=== PATIENT | female | born 1965 | race Caucasian/White ===

== ENCOUNTER 2019-03-28 01:12 | Emergency (ER) | payer OTHER ==
[2019-03-28 01:46] VITALS: TEMP 97.9; BMI 29.1
[2019-03-28] MEDS ORDERED: ALBUTEROL SO4 2.5/IPRATROPIUM 0.5 INH SOL 3 ML VIAL.NEB. NEB ONE (02:44)
--- NOTE | 2019-03-28 02:49 | PDOC ---
History of Present Illness - General Chief Complaint: Blood Pressure Problem Stated Complaint: HIGH BP Time Seen by Provider: 03/28/19 02:19 - History of Present Illness Initial Comments: 03/28/19 03:29 53f with htn presents to the ED with concerns that her pressure at home was high in the 160's. The htn lead her to have shortness of breath and tingling down the arm. Same constellation of vague symptoms that she usually feels when he bp is high. Usually, she uses her albuterol inhaler which always resolves her shortness of breath. However, today, she admits that she completely forgot about it. Pressure in the ED in the 140's. Past History - Past Medical History Allergies/Adverse Reactions: Allergies Allergy/AdvReac Type Severity Reaction Status Date / Time No Known Allergies Allergy Verified 03/28/19 01:54 Home Medications: Ambulatory Orders metFORMIN HCL [Glucophage] 500 mg PO BID 04/28/14 Albuterol Sulfate Inhaler - [Ventolin HFA Inhaler -] 1 - 2 inh PO PRN PRN Glipizide 10 mg PO DAILY 11/20/15 Simvastatin [Zocor -] 5 mg PO HS 11/20/15 Anemia: No Asthma: Yes Cancer: No Cardiac Disorders: No CVA: No COPD: No CHF: No DVT: Yes Dementia: No Diabetes: Yes GI Disorders: No Disorders: No HTN: Yes Hypercholesterolemia: Yes Liver Disease: No Seizures: No Thyroid Disease: No - Surgical History Cardiac Surgery: Yes (CARDIAC CATH NEG 05/02) - Immunization History Td Vaccination: Yes Immunization Up to Date: Yes - Suicide/Smoking/Psychosocial Hx Smoking Status: No Smoking History: Never smoked Years of Tobacco Use: 0 Have you smoked in the past 12 months: No Number of Cigarettes Smoked Daily: 0 Cigars Per Day: 0 Information on smoking cessation initiated: No Hx Alcohol Use: No Drug/Substance Use Hx: No Substance Use Type: None Review of Systems - Review of Systems Able to Perform ROS?: Yes Is the patient limited Faroese proficient: No Constitutional: No: Symptoms Reported HEENTM: No: Symptoms Reported Respiratory: Yes: Shortness of Breath Cardiac (ROS): No: Symptoms Reported ABD/GI: No: Symptoms Reported Integumentary: No: Symptoms Reported Neurological: No: Symptoms reported All Other Systems: Reviewed and Negative *Physical Exam - Vital Signs Last Vital Signs Temp Pulse Resp BP Pulse Ox 97.9 F 92 H 20 153/91 98 03/28/19 01:45 03/28/19 01:45 03/28/19 01:45 03/28/19 01:45 03/28/19 01:45 - Physical Exam General Appearance: Yes: Obese. No: Apparent Distress HEENT: positive: EOMI, HEATHER, Normal ENT Inspection Respiratory/Chest: positive: Lungs Clear, Normal Breath Sounds. negative: Chest Tender, Respiratory Distress Cardiovascular: positive: Regular Rhythm, Regular Rate, S1, S2 Gastrointestinal/Abdominal: positive: Normal Bowel Sounds, Flat, Soft. negative : Tender Musculoskeletal: positive: Normal Inspection. negative: CVA Tenderness Extremity: positive: Normal Capillary Refill, Normal Inspection, Normal Range of Motion Integumentary: positive: Normal Color, Dry, Warm Neurologic: positive: Fully Oriented, Alert, Normal Mood/Affect, Normal Response , Motor Strength 5/5 Medical Decision Making - Medical Decision Making 03/28/19 03:45 Will rule out possible hypertensive emergency although highly unlikely due patient not being significantly hypertensive. \ Although most likely the patient was sob because of her asthma/allergies which increase slightly her blood pressure. Will give patient duoneb, blood work ekg and reassess. EKG: normal sinus rhythm. received duoneb. Patient eloped before bloodwork could be drawn. *DC/Admit/Observation/Transfer Diagnosis at time of Disposition: Hypertension - Discharge Dispostion Disposition: ELOPED - Referrals Referrals: Pilar Larios MD [Primary Care Provider] - - Patient Instructions - Post Discharge Activity
--- NOTE | 2019-03-28 03:28 | PDOC ---
Attending Attestation - Resident Resident Name: Zachery Crow - ED Attending Attestation I have performed the following: I have examined & evaluated the patient, The case was reviewed & discussed with the resident, I agree w/resident's findings & plan - HPI HPI: 03/28/19 03:27 Pt's BP was high at home. She is anxious and wants it checked. - Physicial Exam PE: 03/28/19 03:27 Agree with resident exam. - Medical Decision Making 03/28/19 03:27 Pt was reassured, as her BP came down and her EKG is NSR; she eloped before we could draw blood
[2019-03-28 04:45] VITALS: BP 140/74; PULSE 86
--- NOTE | 2019-03-28 14:19 | EKG ---
Test Reason : Blood Pressure : / mmHG Vent. Rate : 078 BPM Atrial Rate : 078 BPM P-R Int : 150 ms QRS Dur : 084 ms QT Int : 380 ms P-R-T Axes : 064 -29 063 degrees QTc Int : 433 ms NORMAL SINUS RHYTHM LOW VOLTAGE QRS BORDERLINE ECG WHEN COMPARED WITH ECG OF 28-APR-2014 06:07, NO SIGNIFICANT CHANGE WAS FOUND Confirmed by MD Gaffney Daniel ([id number]) on 03/28/2019 2:18:44 PM Referred By: Confirmed By:Dinesh Gaffney MD
== END 2019-03-28 04:05 | disposition left against medical advice (07) ==
LOC: JER 01:12
PROC: 3E0F7GC Introduction of Other Therapeutic Substance into Respiratory Tract, Via Natural or Artificial Opening (ICD-10-PCS; principal; 2019-03-28)
DX: I10 Essential (primary) hypertension (principal); E11.9 Type 2 diabetes mellitus without complications; E78.00 Pure hypercholesterolemia, unspecified; Z79.84 Long term (current) use of oral hypoglycemic drugs; J45.909 Unspecified asthma, uncomplicated
CPT/HCPCS: 93005; 93010; 99282-25

== ENCOUNTER 2019-09-25 03:15 | Emergency (ER) | payer OTHER ==
[2019-09-25 03:54] VITALS: PULSE 98; TEMP 98.8; BMI 35.2
--- NOTE | 2019-09-25 03:54 | PDOC ---
History of Present Illness - General Chief Complaint: Blood Pressure Problem Stated Complaint: HIGH BLOOD PRESSURE Time Seen by Provider: 09/25/19 03:53 - History of Present Illness Initial Comments: HPI: 53yo F with PMH of HTN, HLD, DM presenting with with high blood pressure reading. Patient states she was feeling dizzy around 3am and had heart palpitations. Patient checked her blood pressure because she was feeling poorly and noted it to be elevated, 178/112. She ate garlic as she believes this helps with high blood pressure and took her home dose of losartan. Patient checked her blood pressure once again and since it was still high, she decided to come to the ER. Denies headache, weakness, vision changes, chest pain, or shortness of breath. Patient takes Losartan 50mg and reports medication compliance. Patient feels she is at her baseline currently. Denies dizziness or heart palpitations right now. No fevers or chills. ROS: Constitutional: no fever, no chills HEENT: no throat pain, no dysphagia Cardiovascular: no chest pain, +palpitations Respiratory: no cough, no shortness of breath Gastrointestinal: no abdominal pain, no nausea Genitourinary: no dysuria, no hematuria Musculoskeletal: no myalgia, no arthralgia Skin: no rash, no itching Neurologic: no headache, no weakness Psych: no agitation, no anxiety PE: General: Awake, alert, and fully oriented, in no acute distress Head: No signs of trauma Eyes: EOMI, sclera anicteric ENT: Moist mucus membranes Neck: Normal ROM, supple Lungs: Lungs clear, Normal breath sounds Cardio: Regular rhythm, S1 and S2 present Abdomen: Soft, nontender. No guarding, no rebound, no masses Extremities: Normal range of motion, Distal pulses present SKIN: Warm, Dry, normal turgor Neurologic: Cranial nerves II through XII intact. Normal speech, sensation, strength, coordination, and gait. ED Course/MDM: DDX including but not limited to isolated hypertensive reading, hypertensive urgency vs emergency, ACS, syncope, CVA Patient had CBC, CMP for regular followup performed four days ago which were normal We will obtain Tpn EKG CXR 09/25/19 03:54 EKG: rate 95, QTc 439, sinus CMP Creatine Kinase 56 U/L (26-192) 09/25/19 05:02 Troponin I < 0.02 ng/ml (0.00-0.05) 09/25/19 05:02 Tpn undetectable Patient without signs of end-organ damage To follow up with primary care physician Return precautions Stable to discharge 09/25/19 08:40 CXR as reported by radiology:" EXAM#: TYPE/EXAM: RESULT : [id number] RAD/CHEST PA LAT Chest: Hypertension. Shortness of breath 2 views of the chest reveal clear well aerated lungs, normal mediastinum and sharp angles. The soft tissues are intact. There are some degenerative changes. Since 11/09/2015, there is no change of an adverse nature. Impression: No acute chest pathology. Reported By: Mark Delgadillo MD 09/25/19 0756 " Past History - Past Medical History Allergies/Adverse Reactions: Allergies Allergy/AdvReac Type Severity Reaction Status Date / Time No Known Allergies Allergy Verified 03/28/19 01:54 Home Medications: Ambulatory Orders metFORMIN HCL [Glucophage] 500 mg PO BID 04/28/14 Albuterol Sulfate Inhaler - [Ventolin HFA Inhaler -] 1 - 2 inh PO PRN PRN Glipizide 10 mg PO DAILY 11/20/15 Simvastatin [Zocor -] 5 mg PO HS 11/20/15 Anemia: No Asthma: Yes Cancer: No Cardiac Disorders: No CVA: No COPD: No CHF: No DVT: Yes Dementia: No Diabetes: Yes GI Disorders: No Disorders: No HTN: Yes Hypercholesterolemia: Yes Liver Disease: No Seizures: No Thyroid Disease: No - Surgical History Cardiac Surgery: Yes (CARDIAC CATH NEG 05/02) - Immunization History Td Vaccination: Yes Immunization Up to Date: Yes - Psycho Social/Smoking Cessation Hx Smoking Status: No Smoking History: Never smoked Years of Tobacco Use: 0 Have you smoked in the past 12 months: No Number of Cigarettes Smoked Daily: 0 Cigars Per Day: 0 Information on smoking cessation initiated: No Hx Alcohol Use: No Drug/Substance Use Hx: No Substance Use Type: None *Physical Exam - Vital Signs Last Vital Signs Temp Pulse Resp BP Pulse Ox 98.8 F 98 H 20 154/101 H 99 09/25/19 03:51 09/25/19 03:51 09/25/19 03:51 09/25/19 03:51 09/25/19 03:51 Discharge - Discharge Information Problems reviewed: Yes Clinical Impression/Diagnosis: Hypertension Qualifiers: Hypertension type: unspecified Qualified Code(s): I10 - Essential (primary) hypertension Condition: Stable Disposition: HOME - Follow up/Referral Referrals: Pilar Larios MD [Primary Care Provider] - - Patient Discharge Instructions Patient Printed Discharge Instructions: Eating a Diet Rich in Fruits and Vegetables, How to Monitor Your Blood Pressure at Home Additional Instructions: You came to the emergency department for a high blood pressure reading. Labs, Xray, and EKG did not indicate acute pathology. Continue taking home medications as prescribed. Follow-up with a primary care provider this week to discuss this ED visit and to further evaluate your symptoms. Your workup is not complete until you do so. Call and make an appointment. Immediate medical attention is required if you experience: severe headache, have a seizure, have focal numbness or weakness, chest pain, shortness of breath , or any new or concerning symptoms. If you think you are having an emergency, call for emergency medical services or present to the emergency department right away. - Post Discharge Activity
--- NOTE | 2019-09-25 04:21 | PDOC ---
Attending Attestation - Resident Resident Name: Vicky Pereira - ED Attending Attestation I have performed the following: I have examined & evaluated the patient, The case was reviewed & discussed with the resident, I agree w/resident's findings & plan - HPI HPI: 09/25/19 04:43 Pt comes with HTN; she states that she wakes in the middle of the night sob and hands feel numb and she has blue palms. She has no fever and no outlet obstruction She has no SOB here and she tells us that she is supposed to take losartan 100mg , but that she is only taking 50mg - Physicial Exam PE: 09/25/19 04:47 Pt is obese heart and lungs normal HEENT normal abd soft NT ND no flank pain No pitting edema Pt has no raynauds and no scleroderma She has no rashes She has normal neuro exam - Medical Decision Making 09/25/19 05:43 EKG NST CXR PA/LAT normal vitals improving Card Enz/Trop normal; she is stable for discharge home 09/25/19 05:52 Pt counseled on veggie/fruit diet and stress mitigation techniques. Heart Score/ECG Review - ECG Intrepretation Rhythm: Regular Rhythm - [place]: Normal - P and [place] Delta Wave(s) Present: No WPW: No - QRS Poor R Wave Progression: No Q Wave Present: No - ST and T Early Repolarization: No Non Specific ST-T Wave changes: No - ECG Impressions Normal ECG: Yes Non-specific ST Elevation: No Ischemic Changes: No Bradycardia: No Torsades alma Pointes: No WPW: No
[2019-09-25] MEDS ORDERED: LORazepam 2 MG TABLET PO ONE (04:41)
[2019-09-25] MEDS ORDERED: LORazepam 0.5 MG TABLET ONE (04:48)
[2019-09-25 05:21] VITALS: BP 142/103
--- NOTE | 2019-09-26 14:16 | EKG ---
Test Reason : Blood Pressure : / mmHG Vent. Rate : 095 BPM Atrial Rate : 095 BPM P-R Int : 158 ms QRS Dur : 084 ms QT Int : 350 ms P-R-T Axes : 050 -37 050 degrees QTc Int : 439 ms NORMAL SINUS RHYTHM LEFT AXIS DEVIATION LOW VOLTAGE QRS CANNOT RULE OUT ANTERIOR INFARCT , AGE UNDETERMINED ABNORMAL ECG Confirmed by MD CRISTIANE, BORIS ([id number]) on 09/26/2019 2:16:18 PM Referred By: Confirmed By:BORIS SAUER MD
== END 2019-09-25 05:55 | disposition home or self-care (01) ==
LOC: JER 03:15
DX: I10 Essential (primary) hypertension (principal); E11.9 Type 2 diabetes mellitus without complications; Z79.84 Long term (current) use of oral hypoglycemic drugs; E78.00 Pure hypercholesterolemia, unspecified; Z86.718 Personal history of other venous thrombosis and embolism; Z98.61 Coronary angioplasty status
CPT/HCPCS: 36415; 71046-TC-FY; 82550; 84484; 93005; 93010; 99282-25

== ENCOUNTER 2019-10-07 03:23 | Emergency (ER) | payer OTHER ==
[2019-10-07 04:08] VITALS: PULSE 69; TEMP 98.3; BMI 26.6
[2019-10-07 04:53] VITALS: BP 137/74
--- NOTE | 2019-10-07 05:01 | PDOC ---
Attending Attestation - Resident Resident Name: NatanFredo - ED Attending Attestation I have performed the following: I have examined & evaluated the patient, The case was reviewed & discussed with the resident, I agree w/resident's findings & plan - HPI HPI: 10/07/19 05:23 see resident hpi - Physicial Exam PE: 10/07/19 05:24 see resident exam - Medical Decision Making 10/07/19 05:24 53-year-old female here for blood pressure check, currently asymptomatic We will DC to follow-up with primary care Patient is normotensive without intervention at this time
--- NOTE | 2019-10-07 05:07 | PDOC ---
History of Present Illness - General Chief Complaint: Blood Pressure Problem Stated Complaint: BLOOD PRESSURE PROBLEM Time Seen by Provider: 10/07/19 04:50 History Source: Patient Exam Limitations: No Limitations - History of Present Illness Initial Comments: 10/07/19 04:51 PCP: Dr. Pilar Larios HPI: 53yo F PMH of HTN, HLD, DM presenting with with high blood pressure reading at 3AM. Patient states she felt cold around 3am and had heart palpitations. Patient checked her blood pressure and noted it to be elevated, tp 180/120. She took her home dose of losartan and came to the ED. Arrived with a SBP 124. Denies headache, weakness, vision changes, chest pain, or shortness of breath. Patient takes Losartan 50mg BID and reports medication compliance. She has been working with her PCP to adjust her dose and has an appointment for 10/12/19. Denies dizziness or heart palpitations right now. No fevers, chills, or recent infections. All: NKDA Past History - Travel Close contact w/someone who was outside of country & ill: No - Past Medical History Allergies/Adverse Reactions: Allergies Allergy/AdvReac Type Severity Reaction Status Date / Time No Known Allergies Allergy Verified 03/28/19 01:54 Home Medications: Ambulatory Orders metFORMIN HCL [Glucophage] 500 mg PO BID 04/28/14 Albuterol Sulfate Inhaler - [Ventolin HFA Inhaler -] 1 - 2 inh PO PRN PRN Glipizide 10 mg PO DAILY 11/20/15 Simvastatin [Zocor -] 5 mg PO HS 11/20/15 Anemia: No Asthma: Yes Cancer: No Cardiac Disorders: No CVA: No COPD: No CHF: No DVT: Yes Dementia: No Diabetes: Yes GI Disorders: No Disorders: No HTN: Yes Hypercholesterolemia: Yes Liver Disease: No Seizures: No Thyroid Disease: No - Surgical History Cardiac Surgery: Yes (CARDIAC CATH NEG 05/02) - Immunization History Td Vaccination: Yes Immunization Up to Date: Yes - Psycho Social/Smoking Cessation Hx Smoking Status: No Smoking History: Never smoked Years of Tobacco Use: 0 Have you smoked in the past 12 months: No Number of Cigarettes Smoked Daily: 0 Cigars Per Day: 0 Hx Alcohol Use: No Drug/Substance Use Hx: No Substance Use Type: None Review of Systems - Review of Systems Able to Perform ROS?: Yes Is the patient limited French proficient: Yes Constitutional: No: Chills, Fever HEENTM: No: Nose Congestion, Throat Pain Respiratory: No: Cough, Shortness of Breath Cardiac (ROS): No: Chest Pain, Irregular Heart Rate, Chest Tightness ABD/GI: No: Constipated, Diarrhea, Nausea, Vomiting : No: Burning, Dysuria, Frequency *Physical Exam - Vital Signs Last Vital Signs Temp Pulse Resp BP Pulse Ox 98.3 F 69 18 124/64 100 10/07/19 04:06 10/07/19 04:06 10/07/19 04:06 10/07/19 04:06 10/07/19 04:06 - Physical Exam 10/07/19 05:24 Vitals reviewed, AFVSS GEN: Well appearing, appears stated age, NAD, comfortable. AAOx3. HEENT: NCAT, EOMI, PERRL. Sclera anicteric, noninjected. No facial asymmetry. Moist mucous membranes. Normal voice. Trachea midline. CV: RRR, S1/S2, no murmurs / rubs / gallops appreciated. LUNG: CTAB, normal work of breathing. No wheezes, rales, rhonchi. No cough. Speaking full sentences. GI: Soft, NTND, +BS, no guarding, no rebound. No masses. Neg CVAT b/l. EXTREMITIES: 2+ distal pulses. No LE edema. No obvious deformities of all extremities. SKIN: Warm, dry, no rashes appreciated, non-jaundiced. PSYCH: Normal mood and affect. Cooperative and appropriate. NEURO: CN grossly intact. Moving all extremities well. Normal strength and sensation grossly. Medical Decision Making - Medical Decision Making 10/07/19 05:07 53yo F PMH of HTN, HLD, DM presenting with with high blood pressure reading at 3AM. Resolved. Without complaint or symptoms at this time. Agrees to follow up with PCP in the next two days. Return precautions discussed, patient verbalized understanding. SBP 124 then 137 in the department Exam within normal limits Discharge - Discharge Information Problems reviewed: Yes Clinical Impression/Diagnosis: Hypertension Qualifiers: Hypertension type: unspecified Qualified Code(s): I10 - Essential (primary) hypertension Condition: Improved Disposition: HOME - Admission No - Follow up/Referral Referrals: Pilar Larios MD [Primary Care Provider] - - Patient Discharge Instructions Patient Printed Discharge Instructions: DI for High Blood Pressure Additional Instructions: You were seen and evaluated for high blood pressure. Continue taking your home medications as directed. Follow up with Dr. Larios tomorrow or Friday if possible. Otherwise keep your Thursday 10/12 appointment. Return to the ED for any new or concerning symptoms including but not limited to : high BP associated with chest pain, shortness of breath, headache, nausea, vomiting. - Post Discharge Activity
== END 2019-10-07 05:23 | disposition home or self-care (01) ==
LOC: JER 03:23
DX: I10 Essential (primary) hypertension (principal); E11.9 Type 2 diabetes mellitus without complications; Z79.84 Long term (current) use of oral hypoglycemic drugs; E78.00 Pure hypercholesterolemia, unspecified; Z98.61 Coronary angioplasty status
CPT/HCPCS: 99281-25

== ENCOUNTER 2020-04-24 02:45 | Emergency (ER) | payer OTHER ==
[2020-04-24 03:16] VITALS: BP 149/76; PULSE 83; TEMP 97.9; BMI 29.2
--- NOTE | 2020-04-24 03:20 | PDOC ---
Attending Attestation - Resident Resident Name: Fredo Gama - ED Attending Attestation I have performed the following: I have examined & evaluated the patient, The case was reviewed & discussed with the resident, I agree w/resident's findings & plan - HPI HPI: 04/24/20 06:54 HPI: 54yo F pmh htn presenting with BP elevated to 180s/110s for several days. Denies chest pain, headache, dizziness, lightheadedness, nausea, vomiting, abdom inal or back pain, passing out, chest tightness or any other concerns. Took an extra 50 mg of losartan (noramally takes 100 mg q day) before presenting and arrives with BP 149/76. - Physicial Exam PE: 04/24/20 06:54 Normal exam Agree with resident exam - Medical Decision Making 04/24/20 06:53 Pt is stable for d/c home, as she took an extra med at home and her BP resolved here and she feels great. Pt agrees to go and see her PMD within this week. Stable to go home. Heart Score/ECG Review - ECG Intrepretation Rhythm: Regular Rhythm - [place]: Normal - P and [place] Delta Wave(s) Present: No WPW: No - ST and T Early Repolarization: No Non Specific ST-T Wave changes: No - ECG Impressions Normal ECG: Yes Non-specific ST Elevation: No Ischemic Changes: No Bradycardia: No Torsades alma Pointes: No WPW: No Discharge - Discharge Information Problems reviewed: Yes Clinical Impression/Diagnosis: Hypertension Qualifiers: Hypertension type: unspecified Qualified Code(s): I10 - Essential (primary) hypertension Condition: Stable Disposition: HOME - Follow up/Referral Referrals: Pilar Larios MD [Primary Care Provider] - - Patient Discharge Instructions Patient Printed Discharge Instructions: DI for High Blood Pressure Additional Instructions: You were seen and evaluated for high blood pressure. Please continue your home medications as directed. Call your primary care doctor first thing in the morning to discuss possible medication changes. Return to the ED with any new or concerning symptoms including but not limited to: severe headache, nausea and vomiting, back or chest pain. - Post Discharge Activity
--- NOTE | 2020-04-24 03:22 | PDOC ---
History of Present Illness - General Stated Complaint: ELEVATED BP Time Seen by Provider: 04/24/20 03:07 History Source: Patient Exam Limitations: No Limitations - History of Present Illness Initial Comments: 04/24/20 03:25 PCP: Dr. Pilar Larios HPI: 54yo F [facility] htn presenting with BP elevated to 180s/110s for several days. Denies chest pain, headache, dizziness, lightheadedness, nausea, vomiting, abdominal or back pain, passing out, chest tightness or any other concerns. Took an extra 50 mg of losartan (noramally takes 100 mg q day) before presenting and arrives with BP 149/76. NKDA Meds per chart Past History - Travel History Traveled outside of the country in the last 30 days: No Close contact w/someone who was outside of country & ill: No - Medical History Allergies/Adverse Reactions: Allergies Allergy/AdvReac Type Severity Reaction Status Date / Time No Known Allergies Allergy Verified 04/24/20 03:16 Home Medications: Ambulatory Orders metFORMIN HCL [Glucophage] 500 mg PO BID 04/28/14 Albuterol Sulfate Inhaler - [Ventolin HFA Inhaler -] 1 - 2 inh PO PRN PRN 09/05/14 Glipizide 10 mg PO DAILY 11/20/15 Simvastatin [Zocor -] 5 mg PO HS 11/20/15 Anemia: No Asthma: Yes Cancer: No Cardiac Disorders: No CVA: No COPD: No CHF: No DVT: Yes Dementia: No Diabetes: Yes GI Disorders: No Disorders: No HTN: Yes Hypercholesterolemia: Yes Liver Disease: No Seizures: No Thyroid Disease: No - Surgical History Cardiac Surgery: Yes (CARDIAC CATH NEG 05/02) - Reproductive History Is Patient Now?: No - Immunization History Td Vaccination: Yes Immunization Up to Date: Yes - Psycho-Social/Smoking History Smoking Status: No Smoking History: Never smoked Years of Tobacco Use: 0 Have you smoked in the past 12 months: No Number of Cigarettes Smoked Daily: 0 Cigars Per Day: 0 Information on smoking cessation initiated: No - Substance Abuse Hx (Audit-C & DAST Scrn) How often the patient has a drink containing alcohol: Never Score: In Men: 4 or > Positive; In Women: 3 or > Positive: 0 Screen Result (Pos requires Nsg. Audit-10AR): Negative In the last yr the pt used illegal drug/Rx for NonMed reason: No Score: Yes response is considered Positive: 0 Screen Result (Positive result requires Nsg. DAST-10): Negative Review of Systems - Review of Systems Able to Perform ROS?: Yes Is the patient limited Persian proficient: Yes Constitutional: No: Chills, Fever, Weakness HEENTM: No: Recent change in vision, Nose Congestion, Throat Pain Respiratory: No: Cough, Shortness of Breath Cardiac (ROS): No: Chest Pain, Edema, Irregular Heart Rate, Lightheadedness, Palpitations, Syncope, Chest Tightness ABD/GI: No: Constipated, Diarrhea, Nausea, Vomiting : No: Burning, Dysuria, Frequency Musculoskeletal: No: Back Pain, Muscle Pain, Muscle Weakness, Neck Pain Integumentary: No: Bruising, Pruritus, Rash Neurological: No: Headache, Numbness, Tingling, Weakness Psychiatric: No: Anxiety, Depression, Change in Appetite Endocrine: No: Increased Thirst, Increased Urine, Change in Weight Hematologic/Lymphatic: No: Anemia, Blood Clots, Easy Bleeding All Other Systems: Reviewed and Negative *Physical Exam - Vital Signs Last Vital Signs Temp Pulse Resp BP Pulse Ox 97.9 F 83 20 149/76 100 04/24/20 03:15 04/24/20 03:15 04/24/20 03:15 04/24/20 03:15 04/24/20 03:15 - Physical Exam 04/24/20 03:28 Vitals reviewed, AFVSS GEN: Well appearing, appears stated age, NAD, comfortable. AAOx3. HEENT: NCAT, EOMI, PERRL. Sclera anicteric, noninjected. No facial asymmetry. Moist mucous membranes. Normal voice. Trachea midline. CV: RRR, S1/S2, no murmurs / rubs / gallops appreciated. LUNG: CTABL, normal work of breathing. No wheezes, rales, rhonchi. No cough. Speaking full sentences. GI: Soft, NTND, +BS, no guarding, no rebound. No masses. EXTREMITIES: 2+ distal pulses. No clubbing / cyanosis / edema. No gross deformity in any extremity. SKIN: Warm, dry, no rashes appreciated, non-jaundiced. PSYCH: Normal mood and affect. Cooperative and appropriate. NEURO: CN grossly intact. Moving all extremities well. Normal strength and sensation grossly. Medical Decision Making - Medical Decision Making 04/24/20 03:29 54yo F pm[facility] htn presenting with BP elevated to 180s/110s for several days. Resolved [employer] with additional 50 mg losartan. Otherwise asymptomatic. Agrees to call PCP in the morning to discuss subacute elevation in BP despite medication and discuss adjustments. No indication of hypertensive emergency, BP resolved, patient asymptomatic with normal exam. - EKG Dispo: Home Return precautions discussed, patient verbalized understanding. Discharge - Discharge Information Problems reviewed: Yes Clinical Impression/Diagnosis: Hypertension Qualifiers: Hypertension type: unspecified Qualified Code(s): I10 - Essential (primary) hypertension Condition: Stable Disposition: HOME - Admission No - Follow up/Referral Referrals: Pilar Larios MD [Primary Care Provider] - - Patient Discharge Instructions Patient Printed Discharge Instructions: DI for High Blood Pressure Additional Instructions: You were seen and evaluated for high blood pressure. Please continue your home medications as directed. Call your primary care doctor first thing in the morning to discuss possible medication changes. Return to the ED with any new or concerning symptoms including but not limited to: severe headache, nausea and vomiting, back or chest pain. - Post Discharge Activity
--- NOTE | 2020-04-24 21:23 | EKG ---
Test Reason : Blood Pressure : / mmHG Vent. Rate : 080 BPM Atrial Rate : 080 BPM P-R Int : 148 ms QRS Dur : 082 ms QT Int : 360 ms P-R-T Axes : 059 -37 041 degrees QTc Int : 415 ms NORMAL SINUS RHYTHM LEFT AXIS DEVIATION LOW VOLTAGE QRS ABNORMAL ECG WHEN COMPARED WITH ECG OF 05-JAN-2020 04:05, NO SIGNIFICANT CHANGE WAS FOUND Confirmed by JENNA FRANKLIN MD ([id number]) on 04/24/2020 9:23:21 PM Referred By: Confirmed By:EJNNA FRANKLIN MD
== END 2020-04-24 03:33 | disposition home or self-care (01) ==
LOC: JER 02:45
DX: I10 Essential (primary) hypertension (principal)
CPT/HCPCS: 93005; 93010; 99283-25

== ENCOUNTER 2020-11-23 17:54 | Emergency (ER) | payer OTHER ==
[2020-11-23 18:11] VITALS: BP 149/90; PULSE 72; TEMP 98.3; BMI 30.5
[2020-11-23] MEDS ORDERED: MECLIZINE HCL 25 MG TABLET (FP) PO ONE (20:39)
[2020-11-23] MEDS ORDERED: MECLIZINE HCL 25 MG TABLET (FP) ONE (20:42)
== END 2020-11-23 22:13 | disposition home or self-care (01) ==
LOC: JER 17:54
DX: H81.10 Benign paroxysmal vertigo, unspecified ear (principal)
CPT/HCPCS: 93005; 93010; 99283-25